=== PATIENT | male | born 1995 | race African-American/Black ===

== ENCOUNTER 2018-04-21 16:55 | Emergency (ER) | payer OTHER ==
[~2018-04-21] VITALS: Ht 188 cm; Wt 83.4 kg
[~2018-04-21 16:55] MED LIST: CIPR-249 PO
[2018-04-21] MEDS ORDERED: PENI500T PO (20:24)
[2018-04-21 20:28] VITALS: BP 120/68
[2018-04-21] MEDS ORDERED: PENICILLIN V POTASSIUM 500 MG TAB PO ONE (20:30)
== END 2018-04-21 20:41 | disposition home or self-care (01) ==
LOC: M ED 16:55
DX: J02.9 Acute pharyngitis, unspecified (principal); Z72.0 Tobacco use